=== PATIENT | female | born 1960 | race Caucasian/White ===

== ENCOUNTER 2022-04-27 16:08 | Inpatient (IN) | payer MEDICAID ==
[~2022-04-27] VITALS: Ht 165.1 cm; Wt 98.0 kg
[2022-04-27 16:46] LABS: BASOPHILS # (AUTO) 0.1 X10'3 (0-0.2); EOSINOPHILS # (AUTO) 0.3 X10'3 (0-0.9); EOSINOPHILS % (AUTO) 2.9 % (0-6); HEMATOCRIT 45.7 % (35.0-45.0); HEMOGLOBIN 15.4 g/dl (12.0-16.0); LYMPHOCYTES # (AUTO) 3.1 X10'3 (1.1-4.8); LYMPHOCYTES % (AUTO) 34.2 % (21-51); MEAN CORPUSCULAR HEMOGLOBIN 28.6 PG (27.0-31.0); MEAN CORPUSCULAR HGB CONC 33.7 g/dL (33.0-36.5); MEAN CORPUSCULAR VOLUME 84.9 FL (78-98); MEAN PLATELET VOLUME 7.9 FL (7.4-10.4); MONOCYTES # (AUTO) 0.7 X10'3 (0-0.9); MONOCYTES % (AUTO) 7.3 % (2-12); NEUTROPHILS % (AUTO) 54.6 % (42-75); PLATELET COUNT 263 X10'3 (140-440); RED BLOOD COUNT 5.38 X10'6 (4.20-5.60); RED CELL DISTRIBUTION WIDTH 14.2 % (11.5-14.5); WHITE BLOOD COUNT 9.2 X10'3 (4.5-11.0)
[2022-04-27 17:06] LABS: ALANINE AMINOTRANSFERASE 28 U/L (12-78); ALBUMIN 3.7 G/DL (3.4-5.0); ALKALINE PHOSPHATASE 129 IU/L (46-116); ANION GAP 7 (8-16); ASPARTATE AMINO TRANSFERASE 21 U/L (10-37); BILIRUBIN,TOTAL 0.6 MG/DL (0.1-1.0); BLOOD UREA NITROGEN 20 MG/DL (7-18); BUN/CREATININE RATIO 33.9 (6.6-38.0); CHLORIDE 103 MMOL/L (99-107); CREATININE 0.59 MG/DL (0.40-0.90); GLUCOSE 166 MG/DL (70-104); POTASSIUM 3.9 MMOL/L (3.5-5.1); SODIUM 138 MMOL/L (135-145); TOTAL CARBON DIOXIDE 28.4 MMOL/L (24-32); TOTAL PROTEIN 7.4 G/DL (6.4-8.2); eGFR > 90 ML/MIN
[2022-04-27] MEDS ORDERED: ondansetron/PF 4mg/2ml inj IV PRN (22:50)
[2022-04-27] MEDS ORDERED: metoprolol tartrate 1mg/ml inj IV PRN (22:50)
[2022-04-27] MEDS ORDERED: magnesium Cl slow-release 64mg tablet PO PRN (22:50)
[2022-04-27] MEDS ORDERED: potassium Cl 40MEQ/1/2NS 520ml 520 ML IV PRN (22:50)
[2022-04-27] MEDS ORDERED: PERFLUTREN PROTEIN-A MICROSPHR (Optison) 0.22 MG/ML 3ML VIAL IV ONE (22:50)
[2022-04-27] MEDS ORDERED: regadenoson 0.4mg/5ml syringe IV PRN (22:50)
[2022-04-27] MEDS ORDERED: potassium Cl 20 mEq SR tablet PO PRN ×2 (22:50)
[2022-04-27] MEDS ORDERED: magnesium 4gm in 100ml NS 100 ML IV PRN (22:50)
[2022-04-27] MEDS ORDERED: aminophylline 500mg/20ml vial IV PRN (22:50)
[2022-04-27] MEDS ORDERED: magnesium hydroxide 30ml (MOM) UD suspension PO PRN (22:50)
[2022-04-27] MEDS ORDERED: acetaminophen 325mg tablet PO PRN (22:50)
[2022-04-27] MEDS ORDERED: mag hydrox/Alum hydrox/simeth 30ml oral suspension PO PRN (22:50)
[2022-04-27] MEDS ORDERED: normal saline 1000ml 1,000 ML IV SCH (22:50)
[2022-04-27] MEDS ORDERED: nitroGLYCERIN 0.4mg SUBLingual tab SL PRN (22:50)
[2022-04-27] MEDS ORDERED: glucagon, human recombinant 1mg kit SUBCUT PRN (22:55)
[2022-04-27] MEDS ORDERED: MESSAGE TO PHARMACY PO ONE (22:55)
[2022-04-27] MEDS ORDERED: dextrose 50%-water 50ml dispensing syringe IV PRN ×2 (22:55)
[2022-04-27] MEDS ORDERED: insulin Lispro (HumaLOG) vial - multi-dose SQ SCH (22:55)
[2022-04-27] MEDS ORDERED: DEXTROSE 15 GM of carb/4 tabs (each vial/BOTTLE has 4 tablets) PO PRN ×2 (22:55)
[2022-04-27 23:21] LABS: HEMOGLOBIN A1C 7.7 % (4.5-6.2)
[2022-04-27] MEDS ORDERED: METF-436 PO (23:26)
[2022-04-28] VITALS (8 sets, daily range): BP systolic 127–147; BP diastolic 53–82
--- NOTE | 2022-04-28 03:25 | NUR ---
ASSSUMED CARE OF PT. AFTER RECIEVING REPORT FROM ABHIJEET
[2022-04-28 07:13] LABS: BASOPHILS % (AUTO) 0.6 % (0-1); EOSINOPHILS # (AUTO) 0.2 X10'3 (0-0.9); EOSINOPHILS % (AUTO) 2.7 % (0-6); HEMATOCRIT 43.6 % (35.0-45.0); HEMOGLOBIN 14.7 g/dl (12.0-16.0); LYMPHOCYTES # (AUTO) 2.4 X10'3 (1.1-4.8); LYMPHOCYTES % (AUTO) 35.9 % (21-51); MEAN CORPUSCULAR HEMOGLOBIN 28.7 PG (27.0-31.0); MEAN CORPUSCULAR HGB CONC 33.6 g/dL (33.0-36.5); MEAN CORPUSCULAR VOLUME 85.3 FL (78-98); MONOCYTES # (AUTO) 0.5 X10'3 (0-0.9); MONOCYTES % (AUTO) 7.9 % (2-12); NEUTROPHILS # (AUTO) 3.6 X10'3 (1.8-7.7); NEUTROPHILS % (AUTO) 52.9 % (42-75); PLATELET COUNT 228 X10'3 (140-440); RED BLOOD COUNT 5.11 X10'6 (4.20-5.60); WHITE BLOOD COUNT 6.7 X10'3 (4.5-11.0)
[2022-04-28 07:44] LABS: ALANINE AMINOTRANSFERASE 26 U/L (12-78); ALBUMIN 3.5 G/DL (3.4-5.0); ALBUMIN/GLOBULIN RATIO 1.1 (1.1-1.5); ALKALINE PHOSPHATASE 111 IU/L (46-116); ANION GAP 8 (8-16); ASPARTATE AMINO TRANSFERASE 17 U/L (10-37); BLOOD UREA NITROGEN 22 MG/DL (7-18); BUN/CREATININE RATIO 35.5 (6.6-38.0); CALCIUM 9.2 MG/DL (8.5-10.1); CHLORIDE 104 MMOL/L (99-107); CREATININE 0.62 MG/DL (0.40-0.90); GLUCOSE 178 MG/DL (70-104); MAGNESIUM 1.8 MG/DL (1.5-2.4); POTASSIUM 3.9 MMOL/L (3.5-5.1); SODIUM 139 MMOL/L (135-145); TOTAL CARBON DIOXIDE 27.1 MMOL/L (24-32); TOTAL PROTEIN 6.8 G/DL (6.4-8.2); eGFR > 90 ML/MIN
[2022-04-28] MEDS ORDERED: aspirin 325mg tablet, delayed-release (Ecotrin) PO SCH (08:00)
[2022-04-28] MEDS ORDERED: docusate sod 100mg capsule PO SCH (08:00)
[2022-04-28] MEDS ORDERED: K and/or MAG REPLACEMENT MC SCH (08:00)
[2022-04-28] MEDS ORDERED: heparin, porcine 5000 units/ml vial SQ SCH (08:00)
--- NOTE | 2022-04-28 08:21 | NUR ---
pt to nuc med on monitor with RN, pt is GCS 15, alert and oriented, resp even and unlabored, able to transfer self without assist from gurney to wheelchair
[2022-04-28] MEDS ORDERED: aminophylline inj. 0 ML IV ONE (08:45)
--- NOTE | 2022-04-28 09:53 | NUR ---
pt is resting quietly on nuc med table, SR on monitor no ectopy, HR 84, RR 18
--- NOTE | 2022-04-28 10:30 | NUR ---
patient back to room from yennifer scan.
--- NOTE | 2022-04-28 11:25 | NUR ---
Patient assisted to a position of comfort on hospital bed.
--- NOTE | 2022-04-28 13:52 | NUR ---
Page sent to Dr Melara regarding yennifer scan resulted.
[2022-04-28] MEDS ORDERED: ASPI-1071 PO (15:17)
[2022-04-28] MEDS ORDERED: NITR0.4T51 SL (15:17)
[2022-04-28] MEDS ORDERED: METO-395 PO (15:22)
[2022-04-28] MEDS ORDERED: ATOR10TA PO (15:29)
== END 2022-04-28 18:30 | disposition home or self-care (01) | DRG 198 ==
LOC: ER 16:09 → ED HOLD 22:51
PROVIDERS: ADMIT Internal Medicine; ATTEND Internal Medicine
DX: I25.110 Atherosclerotic heart disease of native coronary artery with unstable angina pectoris (principal); E11.9 Type 2 diabetes mellitus without complications; Z79.82 Long term (current) use of aspirin; Z79.84 Long term (current) use of oral hypoglycemic drugs
CPT/HCPCS: 36415; 71045; 78452; 80053; 82948; 83036; 83735; 83880; 84484; 85025; 93005; 93017; 93306; 96360; 99285; A9500; G0378; J0280; J1815; J2785; J7030

== ENCOUNTER 2023-01-21 18:39 | Emergency (ER) | payer MEDICAID, SELFPAY ==
[~2023-01-21] VITALS: Ht 165.1 cm; Wt 95.5 kg
[~2023-01-21 18:39] MED LIST: ASPI-1071 PO; ATOR10TA PO; METF-436 PO; METO-395 PO; NITR0.4T51 SL
[2023-01-21 20:52] LABS: EOSINOPHILS # (AUTO) 0.2 X10'3 (0-0.9); RED CELL DISTRIBUTION WIDTH 14.8 % (11.5-14.5)
[2023-01-21 20:54] LABS: BASOPHILS # (AUTO) 0.1 X10'3 (0-0.2); BASOPHILS % (AUTO) 0.6 % (0-1); EOSINOPHILS % (AUTO) 2.2 % (0-6); HEMATOCRIT 46.7 % (35.0-45.0); HEMOGLOBIN 15.8 g/dl (12.0-16.0); LYMPHOCYTES # (AUTO) 3.3 X10'3 (1.1-4.8); LYMPHOCYTES % (AUTO) 36.5 % (21-51); MEAN CORPUSCULAR HGB CONC 33.9 g/dL (33.0-36.5); MEAN CORPUSCULAR VOLUME 85.5 FL (78-98); MEAN PLATELET VOLUME 7.8 FL (7.4-10.4); MONOCYTES # (AUTO) 0.7 X10'3 (0-0.9); MONOCYTES % (AUTO) 7.7 % (2-12); NEUTROPHILS # (AUTO) 4.8 X10'3 (1.8-7.7); PLATELET COUNT 257 X10'3 (140-440); RED BLOOD COUNT 5.47 X10'6 (4.20-5.60)
[2023-01-21 20:54] LABS: COLOR,URINE YELLOW (Yellow); GLUCOSE, URINE NEGATIVE (Neg); KETONES,URINE NEGATIVE (Neg); LEUKOCYTE ESTERASE ,URINE TRACE (Neg); NITRITES, URINE NEGATIVE (Neg); OCCULT BLOOD,URINE NEGATIVE (Neg); PH,URINE 5.5 (4.8-8.0); PROTEIN,URINE NEGATIVE (Neg); URINE HCG NEGATIVE (NEG); UROBILINOGEN,URINE 0.2 E.U/dL (0.2-1.0)
[2023-01-21 20:59] LABS: CLARITY,URINE SLIGHTLY CLOUDY (Clear); UA COLLECTION TYPE CLN CATCH MIDSTREAM
[2023-01-21 21:01] LABS: BACTERIA,URINE 2+ /HPF (Neg); SQUAMOUS EPITHELIAL CELL,UR FEW /LPF (FEW); TRANSITIONAL EPI CELLS,URINE FEW /HPF
[2023-01-21 21:02] LABS: WBC CLUMPS,URINE FEW /HPF (NEGATIVE)
[2023-01-21 21:04] LABS: ALANINE AMINOTRANSFERASE 21 U/L (12-78); ALBUMIN/GLOBULIN RATIO 1.1 (1.1-1.5); ALKALINE PHOSPHATASE 110 IU/L (46-116); ANION GAP 9 (8-16); ASPARTATE AMINO TRANSFERASE 16 U/L (10-37); BILIRUBIN,TOTAL 0.6 MG/DL (0.1-1.0); BLOOD UREA NITROGEN 15 MG/DL (7-18); BUN/CREATININE RATIO 21.1 (10.0-20.0); CALCIUM 9.8 MG/DL (8.5-10.1); CHLORIDE 103 MMOL/L (99-107); CREATININE 0.71 MG/DL (0.40-0.90); GLUCOSE 133 MG/DL (70-104); LIPASE < 50 U/L (73-393); POTASSIUM 3.8 MMOL/L (3.5-5.1); SODIUM 140 MMOL/L (135-145); TOTAL CARBON DIOXIDE 28.4 MMOL/L (24-32); TOTAL PROTEIN 7.6 G/DL (6.4-8.2); eGFR 84 ML/MIN
[2023-01-22 00:03] VITALS: BP 109/69; PULSE 61; TEMP 98.2; O2SAT 98
[2023-01-22] MEDS ORDERED: ondansetron 4mg rapidly disintigrating tab PO ONE (00:30)
[2023-01-22] MEDS ORDERED: orphenadrine citrate 60mg/2ml inj. IM ONE (00:30)
[2023-01-22] MEDS ORDERED: cephalexin 250mg capsule PO ONE (00:30)
[2023-01-22] MEDS ORDERED: acetaminophen 325mg tablet PO ONE (00:30)
[2023-01-22] MEDS ORDERED: ketorolac trometh inj. 60 MG/2 ML VIAL IM ONE (00:30)
[2023-01-22] MEDS ORDERED: CYCL-1 PO (00:38)
[2023-01-22] MEDS ORDERED: CEPH250T PO (00:38)
[2023-01-22] MEDS ORDERED: IBUP-1985 PO (00:38)
[2023-01-22] MEDS ORDERED: ACET-812 PO (00:38)
[2023-01-22 00:50] VITALS: RESP 18
== END 2023-01-22 03:39 | disposition home or self-care (01) ==
LOC: ER 18:40
DX: N39.0 Urinary tract infection, site not specified (principal); E11.9 Type 2 diabetes mellitus without complications; Z79.899 Other long term (current) drug therapy; Z79.1 Long term (current) use of non-steroidal anti-inflammatories (NSAID); Z79.2 Long term (current) use of antibiotics
CPT/HCPCS: 36415; 80053; 81001; 81025; 83690; 85025; 87077; 87088; 87186; 96372; 99284; J1885; J2360

== ENCOUNTER 2023-12-20 19:02 | Emergency (ER) | payer MEDICAID ==
[~2023-12-20] VITALS: Ht 167.6 cm; Wt 100.0 kg
[~2023-12-20 19:02] MED LIST changes: -ASPI-1071 PO; -ATOR10TA PO; +ATOR20TA66 PO; -METF-436 PO; -METO-395 PO; -NITR0.4T51 SL
[2023-12-20] MEDS ORDERED: iohexol 350MG/ML 100ml bottle IV ONE (19:09)
[2023-12-20] MEDS ORDERED: ketorolac trometh. 30mg/ml inj. IV ONE (19:45)
[2023-12-20 19:54] LABS: BASOPHILS # (AUTO) 0.1 X10'3 (0-0.2); BASOPHILS % (AUTO) 0.8 % (0-1); EOSINOPHILS # (AUTO) 0.2 X10'3 (0-0.9); EOSINOPHILS % (AUTO) 2.2 % (0-6); HEMATOCRIT 45.4 % (35.0-45.0); HEMOGLOBIN 15.2 g/dl (12.0-16.0); LYMPHOCYTES # (AUTO) 3.3 X10'3 (1.1-4.8); LYMPHOCYTES % (AUTO) 39.6 % (21-51); MEAN CORPUSCULAR HEMOGLOBIN 29.3 PG (27.0-31.0); MEAN CORPUSCULAR HGB CONC 33.5 g/dL (33.0-36.5); MEAN CORPUSCULAR VOLUME 87.4 FL (78-98); MEAN PLATELET VOLUME 8.5 FL (7.4-10.4); MONOCYTES # (AUTO) 0.8 X10'3 (0-0.9); NEUTROPHILS # (AUTO) 3.9 X10'3 (1.8-7.7); NEUTROPHILS % (AUTO) 47.4 % (42-75); PLATELET COUNT 251 X10'3 (140-440); RED BLOOD COUNT 5.19 X10'6 (4.20-5.60); RED CELL DISTRIBUTION WIDTH 14.8 % (11.5-14.5); WHITE BLOOD COUNT 8.3 X10'3 (4.5-11.0)
[2023-12-20 19:56] LABS: ALBUMIN 3.3 G/DL (3.4-5.0); ANION GAP 7 (8-16); BLOOD UREA NITROGEN 18 MG/DL (7-18); BUN/CREATININE RATIO 26.9 (10.0-20.0); CALCIUM 9.4 MG/DL (8.5-10.1); CHLORIDE 104 MMOL/L (99-107); CREATININE 0.67 MG/DL (0.40-0.90); GLUCOSE 129 MG/DL (70-104); POTASSIUM 3.4 MMOL/L (3.5-5.1); SODIUM 139 MMOL/L (135-145); TOTAL CARBON DIOXIDE 27.8 MMOL/L (24-32); eCRCL 82 ML/MIN; eGFR 89 ML/MIN
[2023-12-20] MEDS: proCHLORperazine 10 MG/2 ml inj IV ONE (19:56)
[2023-12-20] MEDS: ketorolac tromethamine 15mg/ml inj. IV ONE (19:56)
[2023-12-20] MEDS: acetaminophen 1,000mg/100ml IV 100 ML IV ONE (19:56)
[2023-12-20 19:57] LABS: APTT 26 SECONDS (22-32); PROTHROMBIN TIME 10.4 SECONDS (9.0-12.0)
[2023-12-20] MEDS: normal saline 1000ml 1,000 ML IV ONE (21:04)
[2023-12-20] MEDS: magnesium 2GM in 50ml NS 50 ML IV ONE (21:04)
[2023-12-20] MEDS: valproic acid 250mg capsule PO ONE (21:22)
[2023-12-20 22:53] VITALS: BP 151/77; PULSE 76; RESP 14; TEMP 97.6; O2SAT 99
== END 2023-12-20 22:54 | disposition home or self-care (01) ==
LOC: ER 19:03
DX: R20.2 Paresthesia of skin (principal); R53.1 Weakness; R41.0 Disorientation, unspecified; R47.01 Aphasia; I25.10 Atherosclerotic heart disease of native coronary artery without angina pectoris; E78.00 Pure hypercholesterolemia, unspecified; E11.9 Type 2 diabetes mellitus without complications; Z79.899 Other long term (current) drug therapy
CPT/HCPCS: 36415; 70450; 70496; 70498; 71045; 80048; 82948; 85025; 85610; 85730; 93005; 96365; 96366; 96375; 99291; J0131; J0780; J1885; J3475; J7030; Q9967; 96367; 96372; 99284; 99285